=== PATIENT | female | born 1990 | race Native Hawaiian/Other Pacific Islander ===

== ENCOUNTER 2018-03-31 09:51 | Observation (INO) | payer OTHER ==
[2018-03-31] MEDS ORDERED: Tdap Vaccine 0.5 ml Vial (10-64 yrs) IM ONE ×2 (10:30→10:37)
[2018-03-31 10:31] LABS: BASO % 0.6 % (0.0-2.0); EOS # 0.1 K/uL (0.0-0.7); EOS % 1.8 % (0.0-4.0); HEMOGLOBIN 12.6 g/dL (11.0-16.0); LYMPH # 1.5 K/uL (1.0-4.3); LYMPH % 22.4 % (20.0-40.0); MEAN CELL VOLUME 88.5 fL (81.0-99.0); MEAN CORPUSCULAR HEMOGLOBIN 29.3 pg (27.0-31.0); MEAN CORPUSCULAR HGB CONC 33.1 g/dL (33.0-37.0); MEAN PLATELET VOLUME 7.5 fL (7.2-11.7); MONO # 0.4 K/uL (0.0-0.8); MONO % 5.8 % (0.0-10.0); NEUT # 4.5 K/uL (1.8-7.0); NEUT % 69.4 % (50.0-75.0); RBC 4.3 Mil/uL (3.80-5.20); RED CELL DISTRIBUTION WIDTH 13.5 % (11.5-14.5); WHITE BLOOD COUNT 6.5 K/uL (4.8-10.8)
[2018-03-31 10:34] LABS: SQUAMOUS EPITHIAL 1 /hpf (0-5); URINE BACTERIA RARE (<OCC); URINE BILIRUBIN NEGATIVE (NEGATIVE); URINE BLOOD NEGATIVE (NEGATIVE); URINE CLARITY Hazy (Clear); URINE COLOR Yellow (YELLOW); URINE GLUCOSE (UA) NORMAL (Normal); URINE LEUKOCYTE ESTERASE 2+ Leu/uL (Negative); URINE PROTEIN 2+ mg/dL (NEGATIVE); URINE UROBILINOGEN NORMAL mg/dL (0.2-1.0)
[2018-03-31 10:39] LABS: PROTHROMBIN TIME 11.2 SECONDS (9.7-12.2)
--- NOTE | 2018-03-31 10:42 | C.PDOC ---
History Of Present Illness 27 year old female with no medical history is brought to the ED by soniaienanabel for an evaluation of left shoulder pain and headache status post fall. Reports headache is 8/10 and frontal. Denies neck pain or any other injuries. As per patient, her last memory is being in the bathroom. She is unable to remember how she fell. As per boyfriend, he heard a big thump around 0730 this morning in the bathroom and when he went to check up on the patient, he saw blood in the sink and on the floor. He believes patient might have hit head on table and then fallen to the floor because she has a missing frontal tooth and a chipped frontal tooth. Boyfriend reports patient was unable to remember what happened when asked. Patient does not remember going snow boarding with boyfriend yesterday. HPI limited due to patient's condition. - HPI Time Seen by Provider: 03/31/18 10:16 Chief Complaint (Nursing): Trauma History Per: Patient, Other (Boyfriend ) History/Exam Limitations: clinical condition Injury Occurred (Timing): Today @ (0730) Location Of Injury: Right: Head (pain ), Left: Shoulder (pain) Associated Symptoms: LOC, Memory Impairment - Fall Fall:Prior To Injury: Slipped Past Medical History Reviewed: Historical Data, Nursing Documentation, Vital Signs Vital Signs: Last Vital Signs Temp 97.4 F L 03/31/18 10:01 Pulse 102 H 03/31/18 10:01 Resp 18 03/31/18 10:01 BP 100/69 03/31/18 10:01 Pulse Ox 100 03/31/18 10:01 - Medical History PMH: No Chronic Diseases Surgical History: No Surg Hx Family History: States: Hypertension - Social History Hx Tobacco Use: No Hx Alcohol Use: Yes (socially ) Hx Substance Use: No - Immunization History Hx Tetanus Toxoid Vaccination: No Hx Influenza Vaccination: No Hx Pneumococcal Vaccination: No Review Of Systems Except As Marked, All Systems Reviewed And Found Negative. Musculoskeletal: Positive for: Shoulder Pain (left). Negative for: Neck Pain Neurological: Positive for: Headache, Other (LOC) Physical Exam - Physical Exam Appears: Non-toxic Skin: Warm, Dry Head: Normacephalic, No Laceration Eye(s): bilateral: Normal Inspection, PERRL, EOMI Ear(s): Bilateral: Normal Nose: Normal Oral Mucosa: Moist Tongue: Normal Appearing Lips: Laceration (lower lip superficial laceration ) Teeth: Loose (8th tooth), Avulsed (avulsions of 7th and 9th tooth ) Gingiva: Normal Appearing Throat: Normal Neck: Supple Chest: Symmetrical Cardiovascular: Rhythm Regular Respiratory: Normal Breath Sounds, No Rales, No Rhonchi, No Wheezing Extremity: Tenderness (left shoulder tenderness worse with ROM ), Capillary Refill (less than 2 sec to left shoulder ) Extremity: Bilateral: Normal Color And Temperature Neurological/Psych: Normal Speech, Normal Motor, Normal Sensation, Other (alert and oriented to name and location, does not know month. No focal deficits. ) Gait: Steady ED Course And Treatment - Laboratory Results Result Diagrams: 03/31/18 10:25 03/31/18 10:25 Lab Results: Urine Color Yellow (YELLOW) 03/31/18 10:25 Urine Clarity Hazy (Clear) 03/31/18 10:25 Urine pH 6.0 (5.0-8.0) 03/31/18 10:25 Ur Specific Lengby 1.021 (1.003-1.030) 03/31/18 10:25 Urine Protein 2+ mg/dL (NEGATIVE) H 03/31/18 10:25 Urine Glucose (UA) Normal mg/dL (Normal) 03/31/18 10:25 Urine Ketones Negative mg/dL (NEGATIVE) 03/31/18 10:25 Urine Blood Negative (NEGATIVE) 03/31/18 10:25 Urine Nitrate Negative (NEGATIVE) 03/31/18 10:25 Urine Bilirubin Negative (NEGATIVE) 03/31/18 10:25 Urine Urobilinogen Normal mg/dL (0.2-1.0) 03/31/18 10:25 Ur Leukocyte Esterase 2+ Licha/uL (Negative) H 03/31/18 10:25 Urine WBC (Auto) 17 /hpf (0-5) H 03/31/18 10:25 Urine RBC (Auto) 3 /hpf (0-3) 03/31/18 10:25 Ur Squamous Epith Cells 1 /hpf (0-5) 03/31/18 10:25 Urine Bacteria Rare (<OCC) 03/31/18 10:25 O2 Sat by Pulse Oximetry: 100 (RA) Pulse Ox Interpretation: Normal - Other Rad XR shoulder X-Ray: Viewed By Me, Read By Radiologist Interpretation: Accession No. : [id number]. Patient Name / ID : MARYANN Montague / [id number]. Exam Date : 03/31/2018 11:06:25 ( Approved ). Study Comment : Sex / Age : F / 27Y. Creator : Oziel Matias MD. Dictator : Oziel Matias MD. Anesthesiology Faculty : Hot Header Operator : Oziel Matias MD. Approver2 : Report Date : 03/31/2018 12:56:34. My Comment : . Left shoulder three views. HISTORY: Injury. COMPARISON: None available. Findings: No evidence for acute displaced fracture or dislocation. Joint spaces appear preserved. Probable apophysis at the medial clavicle. Impression: Negative acute. If pain persists, consider MRI. - CT Scan/US CT orbits Other Rad Studies (CT/US): Read By Radiologist, Radiology Report Reviewed CT/US Interpretation: Accession No. : [id number]. Patient Name / ID : MARYANN Montague / [id number]. Exam Date : 03/31/2018 10:39:51 ( Approved ). Study Comment : Sex / Age : F / 27Y. Creator : Oziel Matias MD. Dictator : Oziel Matias MD. Anesthesiology Faculty : Hot Header Operator : Oziel Matias MD. Approver2 : Report Date : 03/31/2018 11:23:18. My Comment : . CT orbits. HISTORY: Injury. COMPARISON: None available. TECHNIQUE: Multiple contiguous axial images were performed through the face without the use of intravenous contrast. Findings. Mild mucosal thickening of the right maxillary sinus. Mild mucosal thickening of the ethmoid air cells. Frontal and sphenoid sinuses are preserved. Mastoid air cells are preserved. Irregularity with lucency seen extending through the anterior left midline maxilla at the level of a midline-left tooth best seen on series 2, images 47 and 48 which may represent a small fracture deformity involving the tooth and maxilla. In addition, within the adjacent left-sided tooth as demonstrated on series 2 images 36 through 45, there is an apparent lucency extending through the tooth concerning for a fracture deformity of the tooth at the anterior left maxilla. Adjacent rounded radiopaque densities measuring 2 and 1 millimeters seen within the soft tissues anterior to the midline and left maxilla may represent the sequelae of osseous and or dental injury. Clinical correlation. Clinical correlation. Correlation with dental consult may be helpful. Orbital globes are preserved. Parotid glands appear preserved. Submandibular glands appear preserved. Few shotty submandibular lymph nodes. IMPRESSION: Irregularity with lucency seen extending through the anterior left midline maxi lla at the level of a midline-left tooth best seen on series 2, images 47 and 48 which may represent a small fracture deformity involving the tooth and maxilla. In addition, within the adjacent left-sided tooth as demonstrated on series 2 images 36 through 45, there is an apparent lucency extending through the tooth concerning for a fracture deformity of the tooth at the anterior left maxilla. Adjacent rounded radiopaque densities measuring 2 and 1 millimeters seen within the soft tissues anterior to the midline and left maxilla may represent the sequelae of osseous and or dental injury. Clinical correlation. Clinical correlation. Correlation with dental consult may be helpful. Additional findings as above. CT head Other Rad Studies (CT/US): Read By Radiologist, Radiology Report Reviewed CT/US Interpretation: Accession No. : [id number]. Patient Name / ID : MARYANN Montague / [id number]. Exam Date : 03/31/2018 10:35:32 ( Approved ). Study Comment : Sex / Age : F / 27Y. Creator : Oziel Matias MD. Dictator : Oziel Matias MD. Anesthesiology Faculty : Hot Header Operator : Oziel Matias MD. Approver2 : Report Date : 03/31/2018 10:51:53. My Comment : . Date of service: 03/31/2018. PROCEDURE: CT HEAD WITHOUT CONTRAST. HISTORY: Fell hit head w/loss of consciousness. COMPARISON: None available. TECHNIQUE: Axial computed tomography images were obtained through the head/brain without intravenous contrast. Radiation dose: Total exam DLP = 1058.67 mGy-cm. This CT exam was performed using one or more of the following dose reduction techniques: Automated exposure control, adjustment of the mA and/or kV according to patient size, and/or use of iterative reconstruction technique. FINDINGS: HEMORRHAGE: No intracranial hemorrhage. BRAIN: No mass effect or edema. No atrophy or chronic microvascular ischemic changes. VENTRICLES: Unremarkable. No hydrocephalus. CALVARIUM: Unremarkable. PARANASAL SINUSES: Unremarkable as visualized. No significant inflammatory changes. MASTOID AIR CELLS: Unremarkable as visualized. No inflammatory changes. OTHER FINDINGS: Somewhat limited evaluation of the posterior fossa given motion artifact. IMPRESSION: No acute intracranial abnormality. If symptoms persists, consider correlation with MRI. CT C-spine Other Rad Studies (CT/US): Read By Radiologist, Radiology Report Reviewed CT/US Interpretation: Accession No. : [id number]. Patient Name / ID : MARYANN Montague / [id number]. Exam Date : 03/31/2018 10:44:41 ( Approved ). Study Comment : Sex / Age : F / 27Y. Creator : Maritza Parrish. Dictator : Oziel Matias MD. Anesthesiology Faculty : Hot Header Operator : Oziel Matias MD. Approver2 : Report Date : 03/31/2018 10:56:22. My Comment : . CT cervical spine. HISTORY: Injury. COMPARISON: None available. TECHNIQUE: Multiple contiguous axial images were performed through the cervical spine without the use of intravenous contrast. Subsequently, sagittal and coronal reformatted images were obtained. This CT exam was performed using one or more of the following dose reduction techniques: Automated exposure control, adjustment of the mA and/or kV according to patient size, and/or use of iterative reconstruction technique. Findings: Reversal of the normal cervical lordosis. Vertebral body heights are preserved. Minimal anterior osteophyte formation at the C5-6 level. No significant prevertebral so ft tissue swelling. Impression: Mild degenerative changes. Negative acute. If pain persists, consider correlation with MRI. Medical Decision Making Medical Decision Making: Initial Impression: 1) Concussion vs. Brain bleed, 2) multiple teeth fx, 3) r/o maxilla fx Initial Plan: - CT C-spine - CT orbits/facials - CXR - POC urine - XR left should - Tetanus vaccination - Bloodwork - UA 12:15 pm progress note: I spoke to [facility] Resident at [facility] (Dr. Simmons) and recommends outpatient treatment of dental/maxilla injuries. Recommends full liquid diet, amoxil 500 mg TID, follow up with a dentist and also follow up at [facility]--the ph # to make an appointment is: [phone]. I spoke to Dr. Usha Groves (who is concussion certified) and she recommends MRI in AM (ordered) and no TV, no phone, no reading. Also recommends IV fluids. Patient endorsed to Dr. Raphael Rose. / Disposition - Disposition Disposition: HOSPITALIZED Disposition Time: 12:17 Condition: FAIR - Clinical Impression Clinical Impression: Concussion injury of brain, Maxillary fracture, Avulsion of multiple teeth due to trauma - Scribe Statement The provider has reviewed the documentation as recorded by the Scribe Celia Garvey All medical record entries made by the Scribe were at my direction and personally dictated by me. I have reviewed the chart and agree that the record accurately reflects my personal performance of the history, physical exam, medical decision making, and the department course for this patient. I have also personally directed, reviewed, and agree with the discharge instructions and disposition. Decision To Admit - Pt Status Changed To: Hospital Disposition Of: Observation - . Bed Request Type: Regular Admitting Physician: Raphael Rose Patient Diagnosis: Concussion injury of brain, Maxillary fracture, Avulsion of multiple teeth due to trauma
[2018-03-31 10:44] LABS: ALB/GLOB RATIO 1.4 (1.0-2.1); ALBUMIN 4.6 g/dL (3.5-5.0); ALT/SGPT 11 U/L (9-52); AST/SGOT 34 U/L (14-36); BLOOD UREA NITROGEN 13 mg/dL (7-17); GFR NON-AFRICAN AMERICAN > 60
--- NOTE | 2018-03-31 10:55 | CT ---
Date of service: 03/31/2018 PROCEDURE: CT HEAD WITHOUT CONTRAST. HISTORY: Fell hit head w/loss of consciousness COMPARISON: None available. TECHNIQUE: Axial computed tomography images were obtained through the head/brain without intravenous contrast. Radiation dose: Total exam DLP = 1058.67 mGy-cm. This CT exam was performed using one or more of the following dose reduction techniques: Automated exposure control, adjustment of the mA and/or kV according to patient size, and/or use of iterative reconstruction technique. FINDINGS: HEMORRHAGE: No intracranial hemorrhage. BRAIN: No mass effect or edema. No atrophy or chronic microvascular ischemic changes. VENTRICLES: Unremarkable. No hydrocephalus. CALVARIUM: Unremarkable. PARANASAL SINUSES: Unremarkable as visualized. No significant inflammatory changes. MASTOID AIR CELLS: Unremarkable as visualized. No inflammatory changes. OTHER FINDINGS: Somewhat limited evaluation of the posterior fossa given motion artifact. IMPRESSION: No acute intracranial abnormality. If symptoms persists, consider correlation with MRI.
--- NOTE | 2018-03-31 11:26 | CT ---
CT orbits HISTORY: Injury. COMPARISON: None available. TECHNIQUE: Multiple contiguous axial images were performed through the face without the use of intravenous contrast. Findings Mild mucosal thickening of the right maxillary sinus. Mild mucosal thickening of the ethmoid air cells. Frontal and sphenoid sinuses are preserved. Mastoid air cells are preserved. Irregularity with lucency seen extending through the anterior left midline maxilla at the level of a midline-left tooth best seen on series 2, images 47 and 48 which may represent a small fracture deformity involving the tooth and maxilla. In addition, within the adjacent left-sided tooth as demonstrated on series 2 images 36 through 45, there is an apparent lucency extending through the tooth concerning for a fracture deformity of the tooth at the anterior left maxilla. Adjacent rounded radiopaque densities measuring 2 and 1 millimeters seen within the soft tissues anterior to the midline and left maxilla may represent the sequelae of osseous and or dental injury. Clinical correlation. Clinical correlation. Correlation with dental consult may be helpful. Orbital globes are preserved. Parotid glands appear preserved. Submandibular glands appear preserved. Few shotty submandibular lymph nodes. IMPRESSION: Irregularity with lucency seen extending through the anterior left midline maxilla at the level of a midline-left tooth best seen on series 2, images 47 and 48 which may represent a small fracture deformity involving the tooth and maxilla. In addition, within the adjacent left-sided tooth as demonstrated on series 2 images 36 through 45, there is an apparent lucency extending through the tooth concerning for a fracture deformity of the tooth at the anterior left maxilla. Adjacent rounded radiopaque densities measuring 2 and 1 millimeters seen within the soft tissues anterior to the midline and left maxilla may represent the sequelae of osseous and or dental injury. Clinical correlation. Clinical correlation. Correlation with dental consult may be helpful. Additional findings as above.
--- NOTE | 2018-03-31 11:34 | CT ---
CT cervical spine HISTORY: Injury. COMPARISON: None available. TECHNIQUE: Multiple contiguous axial images were performed through the cervical spine without the use of intravenous contrast. Subsequently, sagittal and coronal reformatted images were obtained. This CT exam was performed using one or more of the following dose reduction techniques: Automated exposure control, adjustment of the mA and/or kV according to patient size, and/or use of iterative reconstruction technique. Findings: Reversal of the normal cervical lordosis. Vertebral body heights are preserved. Minimal anterior osteophyte formation at the C5-6 level. No significant prevertebral soft tissue swelling. Impression: Mild degenerative changes. Negative acute. If pain persists, consider correlation with MRI.
[2018-03-31] MEDS ORDERED: Morphine 4 MG/ML VIAL ONE (11:43)
[2018-03-31] MEDS ORDERED: Sodium Chloride 0.9% 1,000 ML IV ONE (12:04)
--- NOTE | 2018-03-31 12:25 | CP.PCM.HP ---
History of Present Illness - History of Present Illness History of Present Illness: PGY-1 Colleen Keane D.O. H&P for Dr. Raphael Rose's service: Patient is a 27 yo female with no past medical history who presents to the ED after a fall. Patient is a poor historian, as she cannot remember the events of the past few days or her fall. Therefore, history obtained from boyfriend and parents at bedside. According to the boyfriend, he and the patient went snowboarding all day yesterday. At dinner, the patient noted that she felt lightheaded and had a ARITA, but it was not too severe. The patient woke up around 7:30am, went to the bathroom, at which point the boyfriend heard a loud thud/crash from the bathroom. Boyfriend asked if everything was alright, and patient said "yes." The patient went back to bed, then got up and went back to the bathroom and locked the door (which alarmed the boyfriend because she never locks it). He got up to check on her, and when patient opened the door, he saw puddles of blood in the sink and floor and asked the patient what happened. Patient said that she did not know, and he brought her to the ED. Boyfriend states that patient had no difficulty walking. Patient has had no prior concussions. Patient said that she had one prior episode of syncope at age 11- 12 years old when she had a fever. She also mentioned that she is good about staying hydrated. Denies history of seizures. She endorses ARITA and mouth pain, as several of her teeth are broken/loose. Patient and boyfriend say that she was in her normal state of health prior to this morning. Of note, during the interview, patient repeated many questions that were already asked and answered. Patient's mother specifically noted that she could tell the patient was not herself and is presently very forgetful. PMH: denies PSH: denies Meds: OCP All: peanuts- anaphylaxis FH: aunt- breast CA SH: lives with parents/family, works in [place] in [place], 1-2 alcoholic drinks/week, denies tobacco and illicit drugs PMD: none Present on Admission - Present on Admission Any Indicators Present on Admission: No History of DVT/PE: No History of Uncontrolled Diabetes: No Urinary Catheter: No Decubitus Ulcer Present: No History Surgical Site Infection Following: None Review of Systems - Constitutional Constitutional: Headache. absent: Chills, Fever - EENT Eyes: absent: Blurred Vision, Change in Vision, Diplopia, Loss of Vision Ears: absent: Decreased Hearing, Tinnitus Nose/Mouth/Throat: absent: Nasal Congestion, Nasal Discharge - Cardiovascular Cardiovascular: absent: Chest Pain, Diaphoresis, Dyspnea, Palpitations - Respiratory Respiratory: absent: Cough, Dyspnea, Hemoptysis - Gastrointestinal Gastrointestinal: absent: Abdominal Pain, Constipation, Diarrhea, Nausea, Vomiting - Genitourinary Genitourinary: absent: Difficulty Urinating, Dysuria, Hematuria - Reproductive: Female Reproductive:Female: Amenorrhea/ Control - Musculoskeletal Musculoskeletal: absent: Back Pain, Numbness, Tingling - Integumentary Integumentary: Bleeding Lesions (mouth- L side) - Neurological Neurological: As Per HPI, Memory Loss, Syncope. absent: Abnormal Gait, Abnormal Hearing, Abnormal Speech, Confusion, Disequilibrium, Dizziness, Numbness, Focal Weakness, Frequent Falls, Lack of Coordination, Loss of Vision, Paresthesias, Tingling - Endocrine Endocrine: absent: Fatigue, Palpitations - Hematologic/Lymphatic Hematologic: absent: Easy Bleeding, Easy Bruising, Lymphadenopathy Past Patient History - Infectious Disease Hx of Infectious Diseases: None - Tetanus Immunizations Tetanus Immunization: Unknown - Past Medical History & Family History Past Medical History?: Yes Past Family History: Reviewed and not pertinent - Past Social History Smoking Status: Never Smoked Chewing Tobacco Use: No Cigar Use: No Alcohol: Occasional Drugs: Denies Home Situation {Lives}: With Family - PSYCHIATRIC Hx Substance Use: No - SURGICAL HISTORY Hx Surgeries: No Meds Allergies/Adverse Reactions: Allergies Allergy/AdvReac Type Severity Reaction Status Date / Time peanut Allergy Intermediate Verified 03/31/18 10:02 Physical Exam - Constitutional Appears: No Acute Distress - Head Exam Head Exam: NORMAL INSPECTION. absent: ATRAUMATIC (erythema on L forehead, no open wound) - Eye Exam Eye Exam: EOMI, Normal appearance, PERRL - ENT Exam ENT Exam: Mucous Membranes Moist Additional comments: front teeth are chipped, pt constantly rubbing upper lip, dried blood in mouth and nose - Neck Exam Neck exam: Positive for: Normal Inspection. Negative for: Lymphadenopathy, Tenderness - Respiratory Exam Respiratory Exam: Clear to Auscultation Bilateral. absent: Accessory Muscle Use, Respiratory Distress, NORMAL BREATHING PATTERN - Cardiovascular Exam Cardiovascular Exam: RRR, +S1, +S2 - GI/Abdominal Exam GI & Abdominal Exam: Normal Bowel Sounds, Soft. absent: Distended, Tenderness - Extremities Exam Extremities exam: Positive for: normal inspection, pedal pulses present. Negative for: pedal edema, tenderness - Back Exam Back exam: NORMAL INSPECTION. absent: paraspinal tenderness, vertebral tenderness - Neurological Exam Neurological exam: Alert, CN II-XII Intact, Oriented x3 - Psychiatric Exam Psychiatric exam: Anxious - Skin Skin Exam: Dry, Intact, Normal Color, Warm Results - Vital Signs Recent Vital Signs: Last Vital Signs Temp 97.4 F L 03/31/18 10:01 Pulse 75 03/31/18 11:45 Resp 18 03/31/18 11:45 BP 109/75 03/31/18 11:45 Pulse Ox 100 03/31/18 12:21 - Labs Result Diagrams: 03/31/18 10:25 03/31/18 10:25 Labs: Laboratory Results - last 24 hr 03/31/18 03/31/18 03/31/18 10:19 10:25 10:25 WBC 6.5 RBC 4.30 Hgb 12.6 Hct 38.1 MCV 88.5 MCH 29.3 MCHC 33.1 RDW 13.5 Plt Count 301 MPV 7.5 Neut % (Auto) 69.4 Lymph % (Auto) 22.4 [place] % (Auto) 5.8 Eos % (Auto) 1.8 Baso % (Auto) 0.6 Neut # (Auto) 4.5 Lymph # (Auto) 1.5 [place] # (Auto) 0.4 Eos # (Auto) 0.1 Baso # (Auto) 0.0 PT 11.2 INR 1.0 APTT 31 Sodium Potassium Chloride Carbon Dioxide Anion Gap BUN Creatinine Est GFR ( Amer) Est GFR (Non-Af Amer) POC Glucose (mg/dL) 95 Random Glucose Calcium Total Bilirubin AST ALT Alkaline Phosphatase Total Protein Albumin Globulin Albumin/Globulin Ratio Urine Color Urine Clarity Urine pH Ur Specific [place] Urine Protein Urine Glucose (UA) Urine Ketones Urine Blood Urine Nitrate Urine Bilirubin Urine Urobilinogen Ur Leukocyte Esterase Urine WBC (Auto) Urine RBC (Auto) Ur Squamous Epith Cells Urine Bacteria Blood Type Antibody Screen 03/31/18 03/31/18 03/31/18 10:25 10:25 10:25 WBC RBC Hgb Hct MCV MCH MCHC RDW Plt Count MPV Neut % (Auto) Lymph % (Auto) [place] % (Auto) Eos % (Auto) Baso % (Auto) Neut # (Auto) Lymph # (Auto) [place] # (Auto) Eos # (Auto) Baso # (Auto) PT INR APTT Sodium 139 Potassium 3.9 Chloride 105 Carbon Dioxide 23 Anion Gap 15 BUN 13 Creatinine 0.7 Est GFR ( Amer) > 60 Est GFR (Non-Af Amer) > 60 POC Glucose (mg/dL) Random Glucose 85 Calcium 9.0 Total Bilirubin 0.6 AST 34 ALT 11 Alkaline Phosphatase 48 Total Protein 7.9 Albumin 4.6 Globulin 3.4 Albumin/Globulin Ratio 1.4 Urine Color Yellow Urine Clarity Hazy Urine pH 6.0 Ur Specific [place] 1.021 Urine Protein 2+ H Urine Glucose (UA) Normal Urine Ketones Negative Urine Blood Negative Urine Nitrate Negative Urine Bilirubin Negative Urine Urobilinogen Normal Ur Leukocyte Esterase 2+ H Urine WBC (Auto) 17 H Urine RBC (Auto) 3 Ur Squamous Epith Cells 1 Urine Bacteria Rare Blood Type O POSITIVE Antibody Screen Negative Assessment & Plan - Assessment and Plan (Free Text) Assessment: Patient is a 27 yo female who presented with a concussion. CT head negative. MRI pending. Patient will follow-up with [facility] surgeon and dentist as outpatient for teeth repair. Plan: Concussion- s/p fall in bathroom, snowboarding the day prior - Vitals wnl, stable - Shoulder XR: no fractures - CT head, orbit, C-spine: no acute findings - MRI brain pending - TSH, free T4 wnl - UDS positive for opiates (patient was given morphine in ED prior to sample collection) - Full liquid diet - Maintain nonstimulating environment- dark, quiet, no phone/computer/TV - Tylenol 650 mg PO Q6H PRN - Amoxicillin 500 mg PO TID as per [facility] surgeon - Patient will f/u with [facility] at [facility] ([phone]) upon discharge - Neurology consulted ([facility]) Ppx: VTE: SCDs GI: not indicated Code status: full code Case discussed with attending, Dr. Raphael Rose.
[2018-03-31] MEDS ORDERED: Sodium Chloride 0.9% 1,000 ML ONE (12:50)
--- NOTE | 2018-03-31 13:00 | RAD ---
Left shoulder three views HISTORY: Injury. COMPARISON: None available. Findings: No evidence for acute displaced fracture or dislocation. Joint spaces appear preserved. Probable apophysis at the medial clavicle. Impression: Negative acute. If pain persists, consider MRI.
--- NOTE | 2018-03-31 13:40 | RAD ---
Chest x-ray two views HISTORY: Injury. Comparison: None available. Findings: Bibasilar nipple shadows. No focal infiltrate or effusion. Heart size within normal limits. Impression: Bibasilar nipple shadows. No focal infiltrate or effusion. Heart size within normal limits.
[2018-03-31 15:18] LABS: BARBITURATES, UR NEGATIVE (NEGATIVE); BENZODIAZEPINES, UR NEGATIVE (NEGATIVE); PHENCYCLIDINE, UR NEGATIVE (NEGATIVE)
[2018-03-31 15:23] LABS: OPIATES, UR POSITIVE (NEGATIVE)
--- NOTE | 2018-04-01 10:58 | MRI ---
Date of service: 04/01/2018 PROCEDURE: MRI BRAIN WITHOUT CONTRAST HISTORY: Concussion. COMPARISON: Comparison made with prior CT scan of the brain dated 03/24. TECHNIQUE: Multiplanar, multisequence MR images of the brain were obtained without intravenous contrast enhancement. FINDINGS: HEMORRHAGE: No acute parenchymal, subarachnoid or extra-axial hemorrhage. No evidence of hemosiderin deposition identified on gradient echo weighted sequence. DWI: No evidence of an acute or early subacute infarction. BRAIN PARENCHYMA: No mass effect or edema. No atrophy or chronic microvascular ischemic changes. VENTRICLES: No obstructive hydrocephalus. CRANIUM: Unremarkable. ORBITS: Orbits and contents grossly unremarkable. 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 OTHER FINDINGS: None. IMPRESSION: No acute intracranial posttraumatic sequela seen.
--- NOTE | 2018-04-01 11:40 | CP.PCM.CON ---
<Walter Peña - Last Filed: 04/01/18 17:35> History of Present Illness - History of Present Illness History of Present Illness: PGy-[address] Groves Patient is a 27 year old female with no significant PMHx who presents to ED brought in by boyfriend following a syncopal episode and fall. Patient states that she has been up early the previous morning to go snowboarding with her boyfriend, who was also at bedside. Per patient's boyfriend, she did fall while snowboarding but was wearing a helmet and was not c/o any symptoms including headache, dizziness, or confusion. Upon returning home, patient went to bed and was noted by boyfriend to go to bathroom, after which he heard a loud crash. Patient was found on ground with blood around her and brought to hospital by the boyfriend. Per patient, she recalls going to the bathroom and fainting, but recalls nothing up until waking up in the ED, and she then also does not remember being transferred up to the medical floor. She does admit to one syncopal episode occuring when she was young (11 or 12 years of age) that occurred after "standing up too quickly", however she has had no episodes of syncope in the past. Patient admits to occasional alcohol, but tobacco or drug use. She denies intoxication at the time of the fall. PMH: no known significant PMHx Surgical hx: denies Meds: OCPs All: peanuts- anaphylaxis FH: aunt- breast [place] SH: lives with parents/family, works in [place] in [place], 1-2 alcoholic drinks/ week, denies tobacco and illicit drugs PMD: none Review of Systems - Constitutional Constitutional: absent: Chills, Fatigue, Fever - EENT Eyes: absent: Blurred Vision, Diplopia Nose/Mouth/Throat: absent: Nasal Congestion, Nasal Discharge Additional comments: Pain in her mouth, reports having several broken teeth from the fall - Cardiovascular Cardiovascular: absent: Chest Pain, Dyspnea - Gastrointestinal Gastrointestinal: absent: Constipation, Diarrhea, Nausea, Vomiting - Genitourinary Genitourinary: absent: Dysuria, Flank Pain - Neurological Neurological: Headaches (Reports headache, improved by tylenol), Memory Loss (See HPI). absent: Abnormal Speech, Dizziness, Numbness, Focal Weakness, Loss of Vision, Sensory Deficit, Weakness, Other Visual Disturbances - Psychiatric Psychiatric: absent: Anxiety, Depression - Hematologic/Lymphatic Hematologic: absent: Easy Bleeding, Easy Bruising Past Patient History - Infectious Disease Hx of Infectious Diseases: None - Tetanus Immunizations Tetanus Immunization: Unknown - Past Medical History & Family History Past Medical History?: Yes Past Family History: Reviewed and not pertinent - Past Social History Smoking Status: Never Smoked Chewing Tobacco Use: No Cigar Use: No Alcohol: Occasional Drugs: Denies Home Situation {Lives}: With Family - PSYCHIATRIC Hx Substance Use: No - SURGICAL HISTORY Hx Surgeries: No Meds Allergies/Adverse Reactions: Allergies Allergy/AdvReac Type Severity Reaction Status Date / Time peanut Allergy Intermediate Verified 03/31/18 10:02 - Medications Medications: Current Medications Acetaminophen (Tylenol 325mg Tab) 650 mg PO Q6 PRN PRN Reason: Pain, Mild (1-3) Last Admin: 04/01/18 08:10 Dose: 650 mg Amoxicillin (Amoxil 500 Mg Cap) 500 mg PO TID [facility]; Protocol Last Admin: 04/01/18 10:53 Dose: 500 mg Physical Exam - Constitutional Appears: Non-toxic, No Acute Distress - Head Exam Head Exam: ATRAUMATIC, NORMOCEPHALIC - Eye Exam Eye Exam: EOMI, Normal appearance, PERRL - ENT Exam ENT Exam: Mucous Membranes Moist Additional comments: Multiple broken teeth - Respiratory Exam Respiratory Exam: Clear to Auscultation Bilateral, NORMAL BREATHING PATTERN. absent: Rales, Rhonchi, Wheezes - Cardiovascular Exam Cardiovascular Exam: Clicks, +S1, +S2 - GI/Abdominal Exam GI & Abdominal Exam: Normal Bowel Sounds. absent: Tenderness - Extremities Exam Extremities exam: Positive for: normal inspection. Negative for: pedal edema, tenderness - Neurological Exam Neurological exam: Alert, CN II-XII Intact, Normal Gait, Oriented x3 Additional comments: Motor and sensory fully intact. Normal babinsky. - Psychiatric Exam Psychiatric exam: Normal Affect, Normal Mood - Skin Skin Exam: Dry, Intact Results - Vital Signs Recent Vital Signs: Last Vital Signs Temp 98.8 F 04/01/18 08:14 Pulse 100 H 04/01/18 08:14 Resp 20 04/01/18 08:14 BP 99/63 L 04/01/18 08:14 Pulse Ox 98 01/28/19 08:14 - Labs Result Diagrams: 04/01/18 13:04 04/01/18 13:04 Labs: Laboratory Results - last 24 hr 03/31/18 03/31/18 03/31/18 10:25 10:25 14:44 Free T4 TSH 3rd Generation 2.46 Urine Opiates Screen Positive H Urine Methadone Screen Negative Ur Barbiturates Screen Negative Ur Phencyclidine Scrn Negative Ur Amphetamines Screen Negative U Benzodiazepines Scrn Negative U Oth Cocaine Metabols Negative U Cannabinoids Screen Negative Blood Type O POSITIVE Antibody Screen Negative 03/31/18 15:04 Free T4 1.37 TSH 3rd Generation Urine Opiates Screen Urine Methadone Screen Ur Barbiturates Screen Ur Phencyclidine Scrn Ur Amphetamines Screen U Benzodiazepines Scrn U Oth Cocaine Metabols U Cannabinoids Screen Blood Type Antibody Screen Assessment & Plan - Assessment and Plan (Free Text) Assessment: Concussion, syncopal episode, fall -CTA head/neck -EEG to rule out possible seizure as cause of syncopal event --If positive for seizure activity, f/u 24-hour continuous video EEG as outpatient -Maintain low-stimulation environment -Continue to monitor signs and symptoms Imaging -CT orbits 03/31: Irregularity with lucency seen extending through the anterior left midline maxilla at the level of a midline-left tooth best seen on series 2, images 47 and 48 which may represent a small fracture deformity involving the tooth and maxilla. In addition, within the adjacent left-sided tooth as demonstrated on series 2 images 36 through 45, there is an apparent lucency extending through the tooth concerning for a fracture deformity of the tooth at the anterior left maxilla. Adjacent rounded radiopaque densities measuring 2 and 1 millimeters seen within the soft tissues anterior to the midline and left maxilla may represent the sequelae of osseous and or dental injury. Clinical correlation. Clinical correlation. Correlation with dental consult may be helpful. -CT head 03/31: No acute intracranial abnormality -CT C-spine 03/31: Mild degenerative changes. Negative acute. If pain persists, consider correlation with MRI. -MRI brain 04/01: No acute intracranial posttraumatic sequela seen <Yuni Groves - Last Filed: 04/01/18 23:37> Meds - Medications Medications: Current Medications Acetaminophen (Tylenol 325mg Tab) 650 mg PO Q6 PRN PRN Reason: Pain, Mild (1-3) Last Admin: 04/01/18 21:47 Dose: 650 mg Amoxicillin (Amoxil 500 Mg Cap) 500 mg PO TID [facility]; Protocol Last Admin: 04/01/18 17:54 Dose: 500 mg Results - Vital Signs Recent Vital Signs: Last Vital Signs Temp 98 F 04/01/18 20:24 Pulse 80 04/01/18 20:24 Resp 18 04/01/18 20:24 BP 108/74 04/01/18 20:24 Pulse Ox 98 04/01/18 22:40 - Labs Result Diagrams: 04/01/18 13:04 04/01/18 13:04 Labs: Laboratory Results - last 24 hr 04/01/18 04/01/18 13:04 13:04 WBC 6.1 RBC 4.07 Hgb 12.1 Hct 35.6 MCV 87.5 MCH 29.7 MCHC 33.9 RDW 13.6 Plt Count 300 MPV 8.1 Neut % (Auto) 62.7 Lymph % (Auto) 28.0 [place] % (Auto) 7.2 Eos % (Auto) 1.3 Baso % (Auto) 0.8 Neut # (Auto) 3.8 Lymph # (Auto) 1.7 [place] # (Auto) 0.4 Eos # (Auto) 0.1 Baso # (Auto) 0.0 Sodium 139 Potassium 3.5 L Chloride 110 H Carbon Dioxide 20 L Anion Gap 12 BUN 8 Creatinine 0.7 Est GFR ( Amer) > 60 Est GFR (Non-Af Amer) > 60 Random Glucose 107 H D Calcium 8.6 Phosphorus 2.4 L Magnesium 1.9 Total Bilirubin 0.5 AST 20 ALT 13 Alkaline Phosphatase 42 Total Protein 7.0 Albumin 4.0 Globulin 3.0 Albumin/Globulin Ratio 1.3 Assessment & Plan - Assessment and Plan (Free Text) Assessment: I examined the patient independently and with the resident and formulated the assessment and plan. All medical record entries made by the Resident were at my direction and personally dictated by me. I have reviewed the chart and agree that the record accurately reflects my personal performance of the history, physical exam, medical decision making, and the department course for this patient. I have also personally directed, reviewed, and agree with the discharge instructions and disposition. Miss Zavala is a young woman who may have had a seizure vs syncope before sustaining moderately severe concussion. We will obtain EEG, and ensure concussion protocol. Dr. [facility]
[2018-04-01 13:23] LABS: BASO % 0.8 % (0.0-2.0); EOS # 0.1 K/uL (0.0-0.7); EOS % 1.3 % (0.0-4.0); HEMOGLOBIN 12.1 g/dL (11.0-16.0); LYMPH # 1.7 K/uL (1.0-4.3); MEAN CELL VOLUME 87.5 fL (81.0-99.0); MEAN CORPUSCULAR HEMOGLOBIN 29.7 pg (27.0-31.0); MEAN CORPUSCULAR HGB CONC 33.9 g/dL (33.0-37.0); MEAN PLATELET VOLUME 8.1 fL (7.2-11.7); MONO # 0.4 K/uL (0.0-0.8); MONO % 7.2 % (0.0-10.0); NEUT # 3.8 K/uL (1.8-7.0); NEUT % 62.7 % (50.0-75.0); NRBC % 0.1 % (0.0-2.0); RBC 4.07 Mil/uL (3.80-5.20); RED CELL DISTRIBUTION WIDTH 13.6 % (11.5-14.5); WHITE BLOOD COUNT 6.1 K/uL (4.8-10.8)
[2018-04-01 13:38] LABS: ALB/GLOB RATIO 1.3 (1.0-2.1); ALT/SGPT 13 U/L (9-52); AST/SGOT 20 U/L (14-36); BLOOD UREA NITROGEN 8 mg/dL (7-17); CALCIUM 8.6 mg/dl (8.6-10.4); GFR NON-AFRICAN AMERICAN > 60
[2018-04-01] MEDS ORDERED: Iodixanol 320 MG/ML 100 ML BOTTLE IV ONE (16:37)
--- NOTE | 2018-04-01 18:17 | CT ---
Date of service: 04/01/2018 PROCEDURE: CT Angiography of the Brain. HISTORY: syncopal episode with LOC COMPARISON: None available. TECHNIQUE: CT angiography of the intracranial arteries was performed. Coronal and sagittal maximum intensity projection reformated images were generated. Radiation dose: Total exam DLP = 459.0 mGy-cm. This CT exam was performed using one or more of the following dose reduction techniques: Automated exposure control, adjustment of the mA and/or kV according to patient size, and/or use of iterative reconstruction technique. FINDINGS: INTERNAL CEREBRAL ARTERIES: Unremarkable. The skull base, petrous, cavernous and supraclinoid segments are bilaterally widely patent. ANTERIOR CEREBRAL ARTERIES: Unremarkable. A1 and A2 segments are widely patent. Smaller distal branches unremarkable, as visualized. MIDDLE CEREBRAL ARTERIES: Unremarkable. M1 and M2 segments are widely patent. Perisylvian branches grossly symmetric. POSTERIOR CIRCULATION: Basilar Artery: Unremarkable. Distal Vertebral Arteries: Unremarkable. Posterior Cerebral Arteries: Unremarkable. Posterior Inferior Cerebellar Arteries: Unremarkable. ANEURYSM/ VASCULAR MALFORMATIONS: None. OTHER FINDINGS: None. IMPRESSION: Unremarkable CT Angiography of the Brain.
--- NOTE | 2018-04-01 18:53 | CARD ---
APPROVED REPORT Date of service: 04/01/2018 EXAM: Two-dimensional and M-mode echocardiogram with Doppler and color Doppler. Other Information Quality : Good[employer]hythm : INDICATION Syncope 2D DIMENSIONS IVSd0.5 (0.7-1.1cm)LVDd4.3 (3.9-5.9cm) PWd0.5 (0.7-1.1cm)LA Nfasth01 (18-58mL) LVDs3.0 (2.5-4.0cm)FS (%) 30.7 % LVEF (%)58.5 (>50%)LVEF (Samuels's)67.01 % IVC0.00 cm M-Mode DIMENSIONS RVDd1.15 (2.1-3.2cm)Left Atrium (MM)2.69 (2.5-4.0cm) IVSd0.74 (0.7-1.1cm)Aortic Root2.76 (2.2-3.7cm) LVDd4.37 (4.0-5.6cm)Aortic Cusp Exc.2.07 (1.5-2.0cm) PWd0.64 (0.7-1.1cm)FS (%) 35 % LVDs2.84 (2.0-3.8cm)LVEF (%)64 (>50%) Mitral Valve MV E Hllvcnid65.3cm/sMV A Mrnzspxq57.8cm/sE/A ratio2.8 TDI Lateral E' Peak V15.13cm/sMedial E' Peak V11.58cm/sE/Lateral E'5.8 E/Medial E'7.6 Tricuspid Valve TR Peak [id number]/sTR Peak Gr.[id number] LEFT VENTRICLE The left ventricle is normal size. The left ventricular function is normal. The left ventricular ejection fraction is within the normal range. There is normal LV segmental wall motion. The left ventricular diastolic function is normal. RIGHT VENTRICLE The right ventricle is normal size. There is normal right ventricular wall thickness. ATRIA The left atrium size is normal. The right atrium size is normal. AORTIC VALVE The aortic valve is normal in structure. MITRAL VALVE The mitral valve is normal in structure. TRICUSPID VALVE There is trace to mild tricuspid regurgitation. <Conclusion> Normal LV systolic function. Normal chamber size. Trace to mild TR.
--- NOTE | 2018-04-01 19:16 | CP.PCM.PN ---
Subjective - Date & Time of Evaluation Date of Evaluation: 04/01/18 Time of Evaluation: 08:12 - Subjective Subjective: PGY-1 Colleen Keane D.O. Medicine progress note for Dr. Gamez's service: Patient was seen and examined this morning. She says she feels a little better. She is having mild headache but states Tylenol helps. She is tolerating her diet. She says she has some trouble concentrating and still cannot remember details from the past few days. Objective - Vital Signs/Intake and Output Vital Signs (last 24 hours): Temp Pulse Resp BP Pulse Ox 98.9 F 88 20 106/67 100 04/01/18 16:39 04/01/18 16:39 04/01/18 16:39 04/01/18 16:39 04/01/18 16:47 - Medications Medications: Current Medications Acetaminophen (Tylenol 325mg Tab) 650 mg PO Q6 PRN PRN Reason: Pain, Mild (1-3) Last Admin: 04/01/18 08:10 Dose: 650 mg Amoxicillin (Amoxil 500 Mg Cap) 500 mg PO TID [facility]; Protocol Last Admin: 04/01/18 17:54 Dose: 500 mg - Labs Labs: 04/01/18 13:04 04/01/18 13:04 PT 11.2 SECONDS (9.7-12.2) 03/31/18 10:25 INR 1.0 03/31/18 10:25 APTT 31 SECONDS (21-34) 03/31/18 10:25 - Constitutional Appears: Non-toxic, No Acute Distress - Head Exam Head Exam: ATRAUMATIC, NORMAL INSPECTION - Eye Exam Eye Exam: EOMI, Normal appearance, PERRL Additional comments: unable to perform rapid eye movements - ENT Exam ENT Exam: Mucous Membranes Moist Additional comments: L upper teeth avulsed, no blood noted - Neck Exam Neck Exam: Normal Inspection - Respiratory Exam Respiratory Exam: Clear to Ausculation Bilateral, NORMAL BREATHING PATTERN - Cardiovascular Exam Cardiovascular Exam: RRR, +S1, +S2 - GI/Abdominal Exam GI & Abdominal Exam: Soft. absent: Distended, Tenderness - Extremities Exam Extremities Exam: Normal Inspection. absent: Tenderness - Neurological Exam Neurological Exam: Alert, Awake, CN II-XII Intact, Oriented x3 Neuro motor strength exam: Left Upper Extremity: 5, Right Upper Extremity: 5, Left Lower Extremity: 5, Right Lower Extremity: 5 - Psychiatric Exam Psychiatric exam: Normal Affect, Normal Mood - Skin Skin Exam: Dry, Intact, Normal Color, Warm Assessment and Plan - Assessment and Plan (Free Text) Assessment: Patient is a 27 yo female who presented with a concussion. CT head negative. MRI pending. Patient will follow-up with [facility] surgeon and dentist as outpatient for teeth repair. Plan: Concussion- s/p fall in bathroom, snowboarding the day prior - Vitals wnl, stable - Shoulder XR: no fractures - CT head, orbit, C-spine: no acute findings - MRI brain: no acute findings - CTA head/neck: negative - TSH, free T4 wnl - UDS positive for opiates (patient was given morphine in ED prior to sample collection) - Full liquid diet - Maintain nonstimulating environment- dark, quiet, no phone/computer/TV - f/u video EEG - f/u echo - Tylenol 650 mg PO Q6H PRN - Amoxicillin 500 mg PO TID as per [facility] surgeon - Patient will f/u with [facility] at [facility] ([phone]) upon discharge - Neurology consulted (Groves) - PT/OT- neurovestibular rehab Ppx: VTE: SCDs GI: not indicated Code status: full code Case discussed with attending, Dr. Gamez.
[2018-04-02 00:57] VITALS: RESP 20
--- NOTE | 2018-04-02 07:25 | CP.PCM.DIS ---
Provider - Provider Date of Admission: 03/31/18 12:15 Attending physician: Raphael Rose MD Primary care physician: none Consults: 03/31/18 11:53 Neurology Consult Stat Comment: Consulting Provider: Yuni Groves Consulting Physician: Yuni Groves Reason for Consult: Pt w/ concussion and retrograde amnesia Time Spent in preparation of Discharge (in minutes): 45 Diagnosis - Discharge Diagnosis (1) Concussion injury of brain Status: Acute Priority: High (2) Epilepsy Status: Chronic Priority: High (3) Avulsion of multiple teeth due to trauma Status: Acute Priority: Medium Hospital Course - Lab Results Lab Results: Most Recent Lab Values WBC 6.1 K/uL (4.8-10.8) 04/01/18 13:04 RBC 4.07 Mil/uL (3.80-5.20) 04/01/18 13:04 Hgb 12.1 g/dL (11.0-16.0) 04/01/18 13:04 Hct 35.6 % (34.0-47.0) 04/01/18 13:04 MCV 87.5 fL (81.0-99.0) 04/01/18 13:04 MCH 29.7 pg (27.0-31.0) 04/01/18 13:04 MCHC 33.9 g/dL (33.0-37.0) 04/01/18 13:04 RDW 13.6 % (11.5-14.5) 04/01/18 13:04 Plt Count 300 K/uL (130-400) 04/01/18 13:04 MPV 8.1 fL (7.2-11.7) 04/01/18 13:04 Neut % (Auto) 62.7 % (50.0-75.0) 04/01/18 13:04 Lymph % (Auto) 28.0 % (20.0-40.0) 04/01/18 13:04 [place] % (Auto) 7.2 % (0.0-10.0) 04/01/18 13:04 Eos % (Auto) 1.3 % (0.0-4.0) 04/01/18 13:04 Baso % (Auto) 0.8 % (0.0-2.0) 04/01/18 13:04 Neut # (Auto) 3.8 K/uL (1.8-7.0) 04/01/18 13:04 Lymph # (Auto) 1.7 K/uL (1.0-4.3) 04/01/18 13:04 [place] # (Auto) 0.4 K/uL (0.0-0.8) 04/01/18 13:04 Eos # (Auto) 0.1 K/uL (0.0-0.7) 04/01/18 13:04 Baso # (Auto) 0.0 K/uL (0.0-0.2) 04/01/18 13:04 PT 11.2 SECONDS (9.7-12.2) 03/31/18 10:25 INR 1.0 03/31/18 10:25 APTT 31 SECONDS (21-34) 03/31/18 10:25 Sodium 139 mmol/L (132-148) 04/01/18 13:04 Potassium 3.5 mmol/L (3.6-5.2) L 04/01/18 13:04 Chloride 110 mmol/L (98-107) H 04/01/18 13:04 Carbon Dioxide 20 mmol/L (22-30) L 04/01/18 13:04 Anion Gap 12 (10-20) 04/01/18 13:04 BUN 8 mg/dL (7-17) 04/01/18 13:04 Creatinine 0.7 mg/dL (0.7-1.2) 04/01/18 13:04 Est GFR ( Amer) > 60 04/01/18 13:04 Est GFR (Non-Af Amer) > 60 04/01/18 13:04 POC Glucose (mg/dL) 95 mg/dL (65-110) 03/31/18 10:19 Random Glucose 107 mg/dL (65-105) H D 04/01/18 13:04 Calcium 8.6 mg/dl (8.6-10.4) 04/01/18 13:04 Phosphorus 2.4 mg/dL (2.5-4.5) L 04/01/18 13:04 Magnesium 1.9 mg/dL (1.6-2.3) 04/01/18 13:04 Total Bilirubin 0.5 mg/dL (0.2-1.3) 04/01/18 13:04 AST 20 U/L (14-36) 04/01/18 13:04 ALT 13 U/L (9-52) 04/01/18 13:04 Alkaline Phosphatase 42 U/L (38-126) 04/01/18 13:04 Total Protein 7.0 g/dL (6.3-8.3) 04/01/18 13:04 Albumin 4.0 g/dL (3.5-5.0) 04/01/18 13:04 Globulin 3.0 gm/dL (2.2-3.9) 04/01/18 13:04 Albumin/Globulin Ratio 1.3 (1.0-2.1) 04/01/18 13:04 Free T4 1.37 ng/dL (0.78-2.19) 03/31/18 15:04 TSH 3rd Generation 2.46 mIU/L (0.46-4.68) 03/31/18 10:25 Urine Color Yellow (YELLOW) 03/31/18 10:25 Urine Clarity Hazy (Clear) 03/31/18 10:25 Urine pH 6.0 (5.0-8.0) 03/31/18 10:25 Ur Specific [place] 1.021 (1.003-1.030) 03/31/18 10:25 Urine Protein 2+ mg/dL (NEGATIVE) H 03/31/18 10:25 Urine Glucose (UA) Normal mg/dL (Normal) 03/31/18 10:25 Urine Ketones Negative mg/dL (NEGATIVE) 03/31/18 10:25 Urine Blood Negative (NEGATIVE) 03/31/18 10:25 Urine Nitrate Negative (NEGATIVE) 03/31/18 10:25 Urine Bilirubin Negative (NEGATIVE) 03/31/18 10:25 Urine Urobilinogen Normal mg/dL (0.2-1.0) 03/31/18 10:25 Ur Leukocyte Esterase 2+ Licha/uL (Negative) H 03/31/18 10:25 Urine WBC (Auto) 17 /hpf (0-5) H 03/31/18 10:25 Urine RBC (Auto) 3 /hpf (0-3) 03/31/18 10:25 Ur Squamous Epith Cells 1 /hpf (0-5) 03/31/18 10:25 Urine Bacteria Rare (<OCC) 03/31/18 10:25 Urine Opiates Screen Positive (NEGATIVE) H 03/31/18 14:44 Urine Methadone Screen Negative (NEGATIVE) 03/31/18 14:44 Ur Barbiturates Screen Negative (NEGATIVE) 03/31/18 14:44 Ur Phencyclidine Scrn Negative (NEGATIVE) 03/31/18 14:44 Ur Amphetamines Screen Negative (NEGATIVE) 03/31/18 14:44 U Benzodiazepines Scrn Negative (NEGATIVE) 03/31/18 14:44 U Oth Cocaine Metabols Negative (NEGATIVE) 03/31/18 14:44 U Cannabinoids Screen Negative (NEGATIVE) 03/31/18 14:44 Blood Type O POSITIVE 03/31/18 10:25 Antibody Screen Negative 03/31/18 10:25 - Hospital Course Hospital Course: Patient is a 27 year old female with no past medical history who presented to the ED after a fall. She is a poor historian as she cannot remember the events of the past few days or her fall. Therefore, history was obtained from the boyfriend and parents at bedside. According to the boyfriend, he and the patient went snowboarding all day on 03/30. At dinner, the patient noted feeling lightheaded and had a headache. The patient woke up around 7:30 am to go to the bathroom, at which point the boyfriend heard a loud thud. The patient said she was alright and went back to bed. She later got up and went back to the bathroom . When the boyfriend went to check on her, he saw puddles of blood in the sink and on the floor and asked what happened. The patient did not know and came straight to the ED. She had no difficulty walking at this time. She denies history of concussions, seizures, or prior syncopal episodes. She complains of headache and mouth pain as several of her teeth are broken/loose. Of note, during the interview, the patient was repeating many questions that were already asked and answered. The patients mother specifically noted that she could tell the patient was not herself and was forgetful. Cervical spine CT, head CT, and shoulder xray show no acute findings. Orbit CT shows a possible small fracture deformity involving the tooth and maxilla at the anterior left midline maxilla as well as a fracture deformity of the tooth at the anterior left maxilla. Chest xray shows no focal infiltrate or effusion and heart size is within normal limits. Patient is placed on a full liquid diet and maintained in a nonstimulating environment that is dark and quiet with no phone/computer/tv. MMSE score is 24/30 on admission. She is started on amoxicillin 500 mg PO TID as per [facility] surgeon and Tylenol 650 mg PO q6 prn for headache. Neurology (Dr. Groves) is consulted. Brain MRI shows no acute intracranial posttraumatic sequela seen. Echocardiogram shows normal LV systolic function with normal chamber size and trace to mild TR. Telemetry did not reveal any arrhythmias. Head and neck CTA is unremarkable. EEG showed seizure activity consistent with primary generalized seizures. She is started on Lamictal. Upon discharge, patient reported alleviation of her headaches and dizziness and was able to sleep through the night. She had no acute complaints. Repeat MMSE score is 30/30. Patient is to maintain low-stimulation environment at home and to monitor for recurrence of any symptoms. She is to follow up with OMFS at [facility] ([phone]) and neurology. Discharge Exam - Head Exam Head Exam: ATRAUMATIC, NORMAL INSPECTION - Eye Exam Eye Exam: EOMI, Normal appearance, PERRL - ENT Exam ENT Exam: Mucous Membranes Moist Additional comments: L-sided teeth chipped/loose - Neck Exam Neck exam: Normal Inspection - Respiratory Exam Respiratory Exam: Clear to PA & Lateral, NORMAL BREATHING PATTERN, UNREMARKABLE - Cardiovascular Exam Cardiovascular Exam: RRR, +S1, +S2 - GI/Abdominal Exam GI & Abdominal Exam: Soft, Unremarkable. absent: Distended, Tenderness - Extremities Exam Extremities exam: normal inspection - Back Exam Back exam: NORMAL INSPECTION - Neurological Exam Neurological exam: Alert, CN II-XII Intact, Normal Gait, Oriented x3 - Psychiatric Exam Psychiatric exam: Normal Affect, Normal Mood - Skin Skin Exam: Dry, Intact, Normal Color, Warm Discharge Plan - Discharge Medications Prescriptions: Amoxicillin [Amoxil 500 mg Cap] 500 mg PO TID #21 cap Lamotrigine 25 mg PO DAILY #30 tablet - Follow Up Plan Condition: IMPROVED Disposition: HOME/ ROUTINE Patient education suggested?: Yes Instructions: Soft Diet, Concussion, Adult (DC), Full Liquid Diet, Amoxicillin, Lamotrigine Additional Instructions: Follow-up with [facility] oral maxillofacial clinic this week. Call [phone] to make an appointment. Follow-up with your dentist within 1 week of discharge. Continue to only drink liquids and eat very soft foods until instructed otherwise by the surgeon. Continue to take amoxicillin as prescribed until told otherwise by the surgeon. Follow-up with neurologist, Dr. Groves, on April 19. You will be prescribed Lamictal for epilepsy. Take 25 mg for 7 days, then 25 mg twice daily for 14 days, then 50 mg twice daily. You may take [id number] Tylenol for pain/headache. Try to maintain a non-stimulating environment. Limit noises, reading, and screen time (TV, phone, computer). Do not return to work for 2 weeks. If symptoms worsen, return to the nearest emergency department. Referrals: Joel Levin MD [Staff Provider] - Yuni Groves MD [Staff Provider] -
--- NOTE | 2018-04-02 09:30 | CP.PCM.PN ---
Subjective - Date & Time of Evaluation Date of Evaluation: 04/02/18 Time of Evaluation: 09:42 - Subjective Subjective: PGY-1 Neurology Progress Note for Dr. Groves Patient seen and examined at bedside this morning. EEG leads in place. Patient slept well overnight. She is currently not complaining of any symptoms including headache, dizziness, n/v, vision changes. Pending final EEG results, patient should be cleared for discharged with office follow up. Objective - Vital Signs/Intake and Output Vital Signs (last 24 hours): Temp Pulse Resp BP Pulse Ox 97.9 F 81 20 94/62 L 99 04/02/18 08:00 04/02/18 08:00 04/02/18 08:00 04/02/18 08:00 04/02/18 08:00 Intake and Output: 04/02/18 04/02/18 06:59 18:59 Intake Total 450 Balance 450 - Medications Medications: Current Medications Acetaminophen (Tylenol 325mg Tab) 650 mg PO Q6 PRN PRN Reason: Pain, Mild (1-3) Last Admin: 04/01/18 21:47 Dose: 650 mg Amoxicillin (Amoxil 500 Mg Cap) 500 mg PO TID [facility]; Protocol Last Admin: 04/01/18 17:54 Dose: 500 mg - Labs Labs: 04/01/18 13:04 04/01/18 13:04 PT 11.2 SECONDS (9.7-12.2) 03/31/18 10:25 INR 1.0 03/31/18 10:25 APTT 31 SECONDS (21-34) 03/31/18 10:25 - Constitutional Appears: Non-toxic, No Acute Distress - Head Exam Head Exam: ATRAUMATIC, NORMOCEPHALIC - Eye Exam Eye Exam: EOMI - ENT Exam ENT Exam: Mucous Membranes Moist Additional comments: Multiple fractured teeth - Respiratory Exam Respiratory Exam: Clear to Ausculation Bilateral, NORMAL BREATHING PATTERN. absent: Rhonchi, Wheezes - Cardiovascular Exam Cardiovascular Exam: REGULAR RHYTHM, +S1, +S2 - GI/Abdominal Exam GI & Abdominal Exam: Soft, Normal Bowel Sounds. absent: Tenderness - Extremities Exam Extremities Exam: Normal Inspection. absent: Pedal Edema, Tenderness - Neurological Exam Neurological Exam: Alert, Awake, CN II-XII Intact, Oriented x3. absent: Motor Sensory Deficit - Psychiatric Exam Psychiatric exam: Normal Affect Additional comments: mildly anxious appearing - Skin Skin Exam: Dry, Intact Assessment and Plan - Assessment and Plan (Free Text) Assessment: 27 year old female with no significant PMHx presenting status post fall 2/2 possible syncopal episode vs seizure activity Concussion, syncopal episode, fall -Assymptomatic on exam -EEG - final results pending. Patient cleared for discharge pending EEG for outpatient follow up. -Imaging thus far has been unremarkable for acute changes that would suggest any underlying cause of syncope. Pending normal EEG, patient may follow up in the office -Will continue to monitor signs and symptoms Imaging -CT orbits 03/31: Irregularity with lucency seen extending through the anterior left midline maxilla at the level of a midline-left tooth best seen on series 2, images 47 and 48 which may represent a small fracture deformity involving the tooth and maxilla. In addition, within the adjacent left-sided tooth as demonstrated on series 2 images 36 through 45, there is an apparent lucency extending through the tooth concerning for a fracture deformity of the tooth at the anterior left maxilla. Adjacent rounded radiopaque densities measuring 2 and 1 millimeters seen within the soft tissues anterior to the midline and left maxilla may represent the sequelae of osseous and or dental injury. Clinical correlation. Clinical correlation. Correlation with dental consult may be helpful. -CT head 03/31: No acute intracranial abnormality -CT C-spine 03/31: Mild degenerative changes. Negative acute. If pain persists, consider correlation with MRI. -MRI brain 04/01: No acute intracranial posttraumatic sequela seen -CTA head/neck 04/01 - unremarkable CTA of the of the brain -Echo 04/01 - Normal LV systolic function. Normal chamber size. Trace to mild TR.
[2018-04-02 16:17] VITALS: BP 90/68; PULSE 70; TEMP 98.5; O2SAT 98
== END 2018-04-02 17:45 | disposition home or self-care (01) ==
LOC: C.ER 09:51 → C.9E 12:15 → C.3T 14:24 → C.5S 04-01 20:16
PROVIDERS: ADMIT Family Medicine; ATTEND Family Medicine
DX: S06.0X9A Concussion with loss of consciousness of unspecified duration, initial encounter (principal); S02.40DA Maxillary fracture, left side, initial encounter for closed fracture; S02.5XXA Fracture of tooth (traumatic), initial encounter for closed fracture; S19.9XXA Unspecified injury of neck, initial encounter; G40.909 Epilepsy, unspecified, not intractable, without status epilepticus; W19.XXXA Unspecified fall, initial encounter; Y92.002 Bathroom of unspecified non-institutional (private) residence as the place of occurrence of the external cause
CPT/HCPCS: 36415; 70450; 70480; 70496; 70498; 70551; 71046; 72125; 73030; 80053; 80324; 80345; 80346; 80349; 80353; 80358; 80361; 81001; 81025; 82948; 83735; 83992; 84100; 84439; 84443; 85025; 85610; 85730; 86850; 86900; 90471; 90715; 93306; 96374; 97116; 97161; 97165; 97530; 99285; G0378; G8978; G8979; G8980; G8987; G8988; G8989; J2270; J7030; Q9967